=== PATIENT | female | born 1990 | race Caucasian/White ===

== ENCOUNTER 2017-03-18 08:32 | Day surgery (SDC) | payer OTHER ==
[~2017-03-18] VITALS: Ht 170.2 cm; Wt 65.8 kg
[2017-03-18 09:00] VITALS: BP 119/75
[2017-03-18 14:29] VITALS: BP 104/74
== END 2017-03-18 14:20 | disposition home or self-care (01) ==
LOC: DS 08:32
PROVIDERS: Surgery
PROC: 0FT44ZZ Resection of Gallbladder, Percutaneous Endoscopic Approach (ICD-10-PCS; principal; 2017-03-18 10:00)
DX: K80.20 Calculus of gallbladder without cholecystitis without obstruction (principal)
CPT/HCPCS: J0690; J1170; J2405; J2704; J2710; J3010; J3490; J7030; J7120; Q9967